=== PATIENT | female | born 1990 | race Two or more races ===

== ENCOUNTER 2016-09-02 21:03 | Emergency (ER) | payer SELFPAY ==
[2016-09-03] MEDS ORDERED: SULFAMETHOXAZOLE 800 MG/TRIMETHOPRIM 160 MG TABLET ONE (00:37)
[2016-09-03] MEDS ORDERED: IBUPROFEN 600 MG TABLET ONE (00:37)
== END 2016-09-03 00:50 | disposition home or self-care (01) ==
LOC: ED 21:03
DX: L73.9 Follicular disorder, unspecified (principal); F17.210 Nicotine dependence, cigarettes, uncomplicated
CPT/HCPCS: 99283 ×2; A9270 ×2